=== PATIENT | male | born 1970 | race African-American/Black ===

== ENCOUNTER 2016-11-06 01:21 | Emergency (ER) | payer OTHER ==
[~2016-11-06] VITALS: Ht 170.2 cm; Wt 100.7 kg
[~2016-11-06 01:21] MED LIST: AMOX-97 PO; HYDR-3583 PO; IBP800T PO
[2016-11-06] MEDS ORDERED: IBUP200C11 PO (02:07)
--- NOTE | 2016-11-06 02:09 | ED Cardiac General ---
History of Present Illness General Chief Complaint: Cardiac/General Problems Stated Complaint: CHECK BP Nursing Triage Note: Pt to ED to request B/P check. Pt states machine broke at [employer]. Pt quit all BP meds over 1 yr ago and has not seen Dr Nguyen for about 1 yr. Pt denies CP. Pt states hot outside today and sweat, had a headache earlier. Allergies and Home Medications Allergies Coded Allergies: No Known Drug Allergies (Unverified , 09/03/11) Home Medications Ibuprofen 200 Mg Capsule, 200 MG PO DAILY, (Reported) Past Pbknneh-Wdkoax-Gqyuds Hx Patient Social History Alcohol Use: Denies Use Recreational Drug Use: No Smoking Status: Former Smoker Type Used: Cigarettes Recent Foreign Travel: No Contact w/Someone Who Travel: No Recent Infectious Disease Expo: No Recent Hopitalizations: No Seasonal Allergies Seasonal Allergies: No Cardiovascular Cardiac Disorders: Hypertension Physical Exam Vital Signs Vital Sign - Last 12Hours 11/06/16 01:36 Temp 97.5 Pulse 76 Resp 20 B/P (MAP) 183/109 Pulse Ox 100 O2 Delivery Room Air Capillary Refill : Less Than 3 Seconds Progress/Results/Core Measures Results/Orders My Orders Orders - CHAR BROWN MD Lisinopril Tablet (Zestril Tablet) (11/06/16 02:15) Hydrochlorothiazide Cap/Tablet (Hctz Cap (11/06/16 02:15) Vital Signs/I&O Vital Sign - Last 12Hours 11/06/16 01:36 Temp 97.5 Pulse 76 Resp 20 B/P (MAP) 183/109 Pulse Ox 100 O2 Delivery Room Air Blood Pressure Mean: 133 Departure Impression Impression: Primary Impression: Hypertension Qualified Codes: I10 - Essential (primary) hypertension Disposition: 01 HOME, SELF-CARE Condition: Improved Departure-Patient Inst. Decision time for Depature: 02:53 Referrals: NO,LOCAL PHYSICIAN (PCP/Family) Primary Care Physician Patient Instructions: High Blood Pressure (DC) Add. Discharge Instructions: Take your blood pressure medication as prescribed. Follow-up with your doctor as soon as possible. Eat a low salt diet. Avoid things that may increase your blood pressure such as tobacco, caffeine, and decongestant medications. All discharge instructions reviewed with patient and/or family. Voiced understanding. Scripts Lisinopril/Hydrochlorothiazide (Lisinopril-Hctz 20-12.5 mg Tab) 1 Each Tablet 1 EACH PO DAILY, #10 TAB Prov: CHAR BROWN MD 11/06/16 CHAR BROWN MD Nov 06, 2016 02:09
[2016-11-06] MEDS ORDERED: HYDROCHLOROTHIAZIDE 25 MG (HCTZ) TAB PO ONE (02:15)
[2016-11-06] MEDS ORDERED: lisINopril 20 MG (ZESTRIL) TAB PO ONE (02:15)
[2016-11-06] MEDS ORDERED: LISI1TAB8 PO (02:55)
[2016-11-06 03:13] VITALS: BP 166/103
== END 2016-11-06 03:13 | disposition home or self-care (01) ==
LOC: EDUNIT# 01:21 → ER 01:26
DX: I10 Essential (primary) hypertension (principal); Z87.891 Personal history of nicotine dependence
CPT/HCPCS: 99283